=== PATIENT | female | born 1990 | race Caucasian/White ===

== ENCOUNTER 2017-01-26 21:06 | Emergency (ER) | payer MEDICAID, OTHER ==
[2017-01-26] MEDS ORDERED: Ondansetron 4 MG/2 ML SDV IVPUSH STA (21:16)
[2017-01-26] MEDS ORDERED: Sodium Chloride 0.9% 1,000 ML IV ONE ×2 (21:16→22:34)
[2017-01-26] MEDS ORDERED: Pantoprazole 40 MG Vial IVPUSH ONE (21:18)
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
[2017-01-26] MEDS ORDERED: Metoclopramide 10 MG/2 ML SDV IV STA (21:24)
[2017-01-26] MEDS ORDERED: Alum Hydroxide/Mag Hydroxide 15 ML, Lidocaine 2% 15 ML PO ONE ×2 (21:27)
[2017-01-26] MEDS ORDERED: diphenhydrAMINE 50 MG/ML SDV IVPUSH ONE (21:30)
[2017-01-26] MEDS ORDERED: Promethazine 12.5 MG in Sodium Chloride 0.9% 50 ML IV STA (22:11)
[2017-01-26 22:32] VITALS: BP 124/68
[2017-01-26] MEDS ORDERED: Aluminum Hydroxide/Magnesium Hydroxide Susp 30 ML Cup ONE (22:53)
[2017-01-26] MEDS ORDERED: Aluminum Hydroxide/Magnesium Hydroxide Susp 30 ML Cup PO ONE (22:54)
[2017-01-26] MEDS ORDERED: HYDROmorphone 2 MG/ML SDV IVPUSH STA (23:12)
== END 2017-01-26 23:45 | disposition home or self-care (01) ==
LOC: FB.ED 21:06
DX: E86.0 Dehydration (principal); K29.70 Gastritis, unspecified, without bleeding; K29.80 Duodenitis without bleeding; F17.210 Nicotine dependence, cigarettes, uncomplicated; F41.9 Anxiety disorder, unspecified; Z90.49 Acquired absence of other specified parts of digestive tract; Z79.899 Other long term (current) drug therapy
CPT/HCPCS: 36415; 80048; 80076; 80305; 81025; 82150; 83605; 85025; 96361; 96365; 96375; 99284; A9270; C9113; J1170; J1200; J2550; J2765; J7040; J7050

== ENCOUNTER 2017-02-07 21:22 | Emergency (ER) | payer MEDICAID, OTHER ==
[2017-02-07] MEDS ORDERED: Ondansetron 4 MG/2 ML SDV IVPUSH ONE (21:42)
[2017-02-07] MEDS ORDERED: HYDROmorphone 2 MG/ML SDV IVPUSH ONE (21:42)
[2017-02-07] MEDS ORDERED: Sodium Chloride 0.9% 1,000 ML IV SCH (21:45)
[2017-02-07 23:31] VITALS: BP 102/59
--- NOTE | 2017-02-08 00:43 | ER ---
DATE SEEN: 02/07/2017 REASON FOR VISIT: Vomiting. HISTORY OF PRESENT ILLNESS: A 26-year-old female, who has vomiting mostly due to marijuana use. She has been in the ER multiple times because of this. She complains of vomiting for 3 days, unable to eat, weakness, and nausea. REVIEW OF SYSTEM: Atypical chest pain. Denies any diarrhea. No constipation. No fever. PAST MEDICAL HISTORY: Anxiety disorder. Vomiting, cyclic. GERD. PHYSICAL EXAMINATION: GENERAL: Nontoxic. VITAL SIGNS: Blood pressure is normal. Pulse 66, temperature 97.9. ENT: Negative. NECK: Supple. MENTAL STATUS: Alert. CHEST: Clear heart rhythm. LABORATORY STUDIES: White cell count was 18,000. UA was negative. Urine drug screen showed opiates, marijuana, and benzodiazepine. FINAL IMPRESSION: Cyclic vomiting. PLAN: 1 L of normal saline, Zofran, and Dilaudid IV. Symptoms improved. She was sent home. Follow up in the office. Time seen was 2200 hours. /[id number] KORY/CYNDI
== END 2017-02-07 23:07 | disposition home or self-care (01) ==
LOC: FB.ED 21:22
DX: G43.A0 Cyclical vomiting, in migraine, not intractable (principal); K21.9 Gastro-esophageal reflux disease without esophagitis
CPT/HCPCS: 36415; 80053; 80305; 81001; 85025; 96361; 96374; 96375; 99284; J1170; J2405; J7040